=== PATIENT | male | born 1990 | race Caucasian/White ===

== ENCOUNTER 2018-05-06 11:10 | Emergency (ER) | payer OTHER ==
--- NOTE | 2018-05-06 12:04 | ED ---
Skin Complaint - HPI Summary HPI Summary: 27-year-old male presents with dental fracture today. 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 He cracked his tooth. This tooth is still there but there is a fracture noted through the pulp. The area continues to bleed minimally. he does not currently have a dentist. No allergies antibiotics. No fevers. he may have a dental appointment tomorrow. no other injury. no LOC or head injury. - History of Current Complaint Chief Complaint: EDDentalPain Time Seen by Provider: 05/06/18 11:25 Stated Complaint: DENTAL PAIN Pain Intensity: 3 - Allergy/Home Medications Allergies/Adverse Reactions: Allergies Allergy/AdvReac Type Severity Reaction Status Date / Time No Known Allergies Allergy Verified 05/06/18 11:20 Home Medications: Home Medications Cetirizine HCl [Zyrtec] 10 mg PO DAILY PRN 05/06/18 [History Confirmed 05/06/18] PMH/Surg Hx/FS Hx/Imm Hx Endocrine/Hematology History: Denies: Hx Anticoagulant Therapy Cardiovascular History: Denies: Hx Myocardial Infarction Infectious Disease History: No Infectious Disease History: Denies: Traveled Outside the [place] in Last 30 Days - Family History Known Family History: Negative: Diabetes - Social History Alcohol Use: Occasionally Substance Use Type: Reports: None Smoking Status (MU): Never Smoked Tobacco Review of Systems Negative: Fever Positive: Dental Pain Negative: Chest Pain Negative: Shortness Of Breath All Other Systems Reviewed And Are Negative: Yes Physical Exam Triage Information Reviewed: Yes Vital Signs On Initial Exam: Initial Vitals Temp Pulse Resp BP Pulse Ox 97.8 F 82 16 133/74 96 05/06/18 11:18 05/06/18 11:18 05/06/18 11:18 05/06/18 11:18 05/06/18 11:18 Vital Signs Reviewed: Yes Appearance: Positive: Well-Appearing Skin: Positive: Warm, Dry Head/Face: Positive: Normal Head/Face Inspection Eyes: Positive: Normal, Conjunctiva Clear ENT: Positive: Pharynx normal, TMs normal Dental: Positive: Dental Fracture @ - 7 Respiratory/Lung Sounds: Positive: Clear to Auscultation, Breath Sounds Present Cardiovascular: Positive: Normal, RRR Musculoskeletal: Positive: Normal Neurological: Positive: Normal Psychiatric: Positive: Normal Procedures - Procedure Summary Procedure Summary: on tooth [address] eric-mary Diagnostics - Vital Signs Vital Signs Temp Pulse Resp BP Pulse Ox 05/06/18 11:18 97.8 F 82 16 133/74 96 - Laboratory Lab Statement: Any lab studies that have been ordered have been reviewed, and results considered in the medical decision making process. Course/Dx - Course Course Of Treatment: 27-year-old male presents with dental fracture today. 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 He cracked his tooth. This tooth is still there but there is a fracture noted through the pulp. The area continues to bleed minimally. he does not currently have a dentist. No allergies antibiotics. No fevers. he may have a dental appointment tomorrow. no other injury. no LOC or head injury. on exam has fracture tooth at tooth 7. placed eric-mary on the area. will place on amoxicillin. told to follow up with dentist. patient understand and agrees with plan. - Differential Diagnoses - Skin Complaint Differential Diagnoses: Other - dental fracture, dental abscess - Diagnoses Provider Diagnoses: Fractured tooth Discharge - Sign-Out/Discharge Documenting (check all that apply): Patient Departure - Discharge Plan Condition: Good Disposition: HOME Prescriptions: Amoxicillin PO (*) [Amoxicillin 500 MG CAP*] 500 mg PO Q12H #14 cap Patient Education Materials: Acute Dental Trauma (ED) Referrals: No Primary Care Phys,NOPCP [Primary Care Provider] - Additional Instructions: eat soft foods take antibiotic twice a day for 7 days Follow up with dentist Return to ED if develop any new or worsening symptoms - Billing Disposition and Condition Condition: GOOD Disposition: Home Images - Images Dental: 1 - fracture
[2018-05-06] MEDS ORDERED: Benzocaine/Butamben/Tetracain* SPRAY TOPICAL ONE (12:10)
[2018-05-06 13:27] VITALS: BP 137/73
== END 2018-05-06 13:26 | disposition home or self-care (01) ==
LOC: ED 11:10
DX: S02.5XXA Fracture of tooth (traumatic), initial encounter for closed fracture (principal); W22.8XXA Striking against or struck by other objects, initial encounter; Y93.89 Activity, other specified; Y92.9 Unspecified place or not applicable
CPT/HCPCS: 99282; A9270-GY